=== PATIENT | female | born 1950 | race Caucasian/White ===

== ENCOUNTER 2019-01-20 10:06 | Day surgery (SDC) | payer MEDICARE, OTHER ==
[~2019-01-20] VITALS: Ht 167.6 cm; Wt 94.5 kg
[2019-01-20 11:04] VITALS: Ht 167.6 cm; Wt 94.5 kg
[2019-01-20] MEDS ORDERED: AMLO2.5T78 PO (11:07)
[2019-01-20] MEDS ORDERED: LORA-441 PO (11:07)
[2019-01-20] MEDS ORDERED: BENA40TA56 PO (11:07)
[2019-01-20] MEDS ORDERED: ZOFRAN PRN (11:07)
[2019-01-20] MEDS ORDERED: ASPI-903 PO (11:07)
[2019-01-20] MEDS ORDERED: CHLO25TA2 PO (11:07)
[2019-01-20 11:18] VITALS: BP 158/74; PULSE 10; RESP 10
--- NOTE | 2019-01-20 11:19 | PREAC ---
Date/Time of Note Date/Time of Note DATE: 01/20/19 TIME: 11:18 Anesthesia Eval and Record Evaluation Time Pre-Procedure Interview DATE: 01/20/19 TIME: 11:18 Age 68 Sex female NPO: 8 hrs Preoperative diagnosis abd pain Planned procedure EGD colonoscopy Past Medical History Past Medical History: Includes Cardio: HTN Surgery & Anesthesia Issues No known issue Meds Anticoagulation: No Beta Dilcia within 24 hr: No Reason Beta Dilcia not given: Pt. not on B-Dilcia Reported Medications Lorazepam* (Ativan*) 0.5 Mg Tablet, 0.5 MG PO HS PRN for ANXIETY, #30 TAB 01/20/19 Aspirin* (Aspirin* Chew) 81 Mg Tab.chew, 81 MG PO DAILY, TAB.CHEW 01/20/19 [Zofran Prn] No Conflict Check 01/20/19 Benazepril Hcl* (Benazepril Hcl*) 40 Mg Tablet, 40 MG PO DAILY, #30 TAB 01/20/19 Chlorthalidone* (Chlorthalidone*) 25 Mg Tablet, 25 MG PO DAILY, TAB 01/20/19 Amlodipine Besylate* (Amlodipine Besylate*) 2.5 Mg Tablet, 5 MG PO DAILY, #30 TAB 01/20/19 Meds reviewed: Yes Allergies Coded Allergies: No Known Drug Allergies (Verified Allergy, Unknown, 01/20/19) Allergies Reviewed: Yes Labs/Studies Labs Reviewed: Reviewed by anesthesiologist test: N/A Studies: ECG (n/a), CXR (n/a) Pre-procedure Exam Airway: Adequate mouth opening Mallampati: Mallampati I Teeth: Normal Lung: Normal Heart: Normal ASA Physical Status ASA physical status: 2 Emergency: None Planned Anesthetic General/MAC: MAC Planned Pain Management Parenteral pain med Pre-operative Attestations Prior to commencing anesthesia and surgery, the patient was re-evaluated, there was verification of: *The patient's identity *The results of appropriate recent lab work and preoperative vital signs *The above evaluation not changing prior to induction *Anesthetic plan, risk benefits, alternative and complications discussed with patient/family; questions answered; patient/family understands, accepts and wishes to proceed. TOMAS CONLEY MD Jan 20, 2019 11:19
[2019-01-20] MEDS ORDERED: FENTAnyl 50 MCG/ML VIAL ONE (11:20)
[2019-01-20] MEDS ORDERED: PROPOFOL 20 ML ONE ×3 (11:20→12:28)
[2019-01-20] MEDS ORDERED: ONDANSETRON 4 MG INJ IV PRN (11:30)
[2019-01-20 12:32] VITALS: BP 149/77; PULSE 68; RESP 16
--- NOTE | 2019-01-21 06:16 | CONS ---
DATE OF ADMISSION: 01/20/2019 DATE OF CONSULTATION: PATIENT NAME: MILAN ANGUIANO Dear Dr. Moreno: I thank you very much for this kind referral. HISTORY OF PRESENT ILLNESS: Ms. Milan Anguiano is a 68-year-old female patient who has been referr ed to me for further evaluation of change in the bowel habit. No past history of colon neoplasm. He r appetite has been poor and she has been losing weight. She never had screening colonoscopy. The p atient also complains of upper abdominal pain associated with nausea. She has been taking Zofran. N o past history of peptic ulcer disease. She is on baby aspirin a day. No history of gallstones or l iver disease. She is hypertensive. Not a diabetic. No heart disease, lung problem or kidney diseas e. She has anxiety disorder. She is on Ativan. She is status post appendectomy and surgery for tub al . SOCIAL HISTORY: Nonsmoker. No alcohol abuse. FAMILY HISTORY: No family history of gastrointestinal tract neoplasm. ALLERGIES: NO KNOWN DRUG ALLERGIES. MEDICATIONS: 1. Amlodipine 5 mg p.o. daily. 2. Chlorthalidone 25 mg p.o. daily. 3. Benazepril 40 mg p.o. daily. 4. Zofran p.r.n. 5. Aspirin 81 mg p.o. daily. 6. Ativan 0.5 mg. q.i.d. p.r.n. for anxiety. PHYSICAL EXAMINATION: VITAL SIGNS: She is 5 feet 6 inches tall and weighs 200 pounds, BMI 33, blood pressure 132/84. HEART: Normal heart sounds. LUNGS: Clear. ABDOMEN: Soft, no masses. Normal bowel sounds. NEUROLOGIC: Normal neurological exam. IMPRESSION: 1. Change in the bowel habit. 2. The patient never had screening colonoscopy. 3. Upper abdominal pain associated with nausea. 4. Loss of appetite and weight loss. 5. The patient is on Zofran. 6. Hypertension. 7. Anxiety disorder and the patient is on Ativan. 8. Status post appendectomy and surgery for tubal . 9. Elevated body mass index. PLAN: 1. Follow up with the primary MD for the management of elevated BMI and hypertension. 2. Screening colonoscopy. 3. Upper endoscopy for further evaluation of abdominal pain associated with nausea. The procedures and possible complications are well explained to the patient and the family. They und erstand and consent to the procedures. I thank you once again. With warmest personal regards, Dictated By: BEULAH REDDING/REINALDO Conf#: [id number] DID#: [id number]
--- NOTE | 2019-01-21 14:51 | PAC ---
Date/Time of Note Date/Time of Note DATE: 01/21/19 TIME: 14:50 Post-Anesthesia Notes Post-Anesthesia Note Last documented vital signs Vital Signs Date Temp Pulse Resp B/P (MAP) Pulse Ox O2 O2 Flow FiO2 Time Delivery Rate 01/20/19 98.0 68 16 149/77 97 Room Air 12:32 (101) 01/20/19 98.0 11:18 Activity: WNL Respiratory function: WNL Cardiovascular function: WNL Mental status: Baseline Pain reasonably controlled: Yes Hydration appropriate: Yes Nausea/Vomiting absent: No TOMAS CONLEY MD Jan 21, 2019 14:50
== END 2019-01-20 13:22 | disposition home or self-care (01) ==
LOC: GIL 10:06
PROVIDERS: ATTEND Internal Medicine Gastroenterology
DX: R19.4 Change in bowel habit (principal); K29.30 Chronic superficial gastritis without bleeding; K64.8 Other hemorrhoids; D12.4 Benign neoplasm of descending colon; I10 Essential (primary) hypertension; K44.9 Diaphragmatic hernia without obstruction or gangrene; K21.9 Gastro-esophageal reflux disease without esophagitis
CPT/HCPCS: 43239; 45380; 88305; 88312; J3010